=== PATIENT | female | born 1945 | race Caucasian/White ===

== ENCOUNTER 2022-01-09 21:29 | Emergency (ER) | payer MEDICARE ==
[~2022-01-09] VITALS: Ht 162.6 cm; Wt 63.2 kg
[2022-01-09] MEDS ORDERED: traMADol 50 MG TAB PO ONE (22:45)
[2022-01-09] MEDS ORDERED: ACETAMINOPHEN TAB 650MG DOSE (2X325MG) PO ONE (22:45)
[2022-01-09] MEDS ORDERED: LIDOCAINE 2% MDV 20ML VIAL SC ONE (22:45)
[2022-01-09] MEDS ORDERED: DERMABOND TOPICAL SKIN ADHESIVE TOP ONE (23:40)
[2022-01-10 00:11] VITALS: BP 104/51
== END 2022-01-10 00:20 | disposition home or self-care (01) ==
LOC: M ED 21:29 → EDBD 21:29 → M ED 01-10 00:20
DX: S81.811A Laceration without foreign body, right lower leg, initial encounter (principal); S51.012A Laceration without foreign body of left elbow, initial encounter; W18.09XA Striking against other object with subsequent fall, initial encounter; Z88.1 Allergy status to other antibiotic agents